=== PATIENT | female | born 1935 | race Caucasian/White ===

== ENCOUNTER 2020-07-27 11:25 | Inpatient (IN) | payer MEDICARE, MEDICAID ==
[~2020-07-27 11:25] MED LIST: ALEVE 220MG220 MG PO; ATIVAN1 MG PO; BENADRYL 1%-0.11 CRE TP; BENADRYL25 M1 PO; BIOFREEZE 0.2%-1 GE1 TP; BONIVA PO; CALCIUM 500 SU500 MG PO; COZAAR100 MG PO; CYMBALTA; GABAPENTIN; GLUCOSAMINE & C1 CAP PO; HUMALOG MIX 75/10 ML SC; HYZAAR 50-12.1 UDTAB PO; IMODIUM 2MG CAPS2 MG PO; KLOR-CON M2020 MEQ PO; L-THYROXINE S0.05 MG PO; LASIX40 MG PO; MILK OF MA1200 MG/5 PO; MULTIVITAMIN WI1 CTB PO; NEURONTIN300 MG/CAP PO; NOVOLOG100 U/ML SC; OSCAL 500MG/VI500 MG PO; PEPCID 20MG TAB20 MG PO; QUININE SULFAT PO; REGLAN 10MG10 MG/TAB PO; TYLENOL 500MG500 MG PO; ULTRAM 50MG TAB50 MG PO; VITAMIN D31000 I1 PO; ZOCOR20 MG PO
[2020-07-27 14:59] LABS: BASO % 0.6 % (0.0-2.0); EOS # 0.2 (0.0-0.7); EOS % 3.1 % (0-4.0); GRAN # 4.8 (1.4-6.5); HEMOGLOBIN 11.2 g/dl (12.5-16.0); LYMPH # 1.1 (1.2-3.4); MEAN CELL VOLUME 98 fl (80.0-100.0); MEAN CORPUSCULAR HEMOGLOBIN 31 pg (27.0-31.0); MEAN CORPUSCULAR HGB CONC 32 g/dl (33.0-37.0); MEAN PLATELET VOLUME 11.8 fl (7.4-10.4); MONO # 0.6 (0.1-0.6); PLATELET COUNT 141 K/mm3 (130-400); REDCELL DISTRIBUTION WIDTH-CV 13.2 % (11.5-14.5)
[2020-07-27 15:11] LABS: CALCIUM 8.6 mg/dL (8.4-10.2); CREATININE, serum 2.47 (0.52-1.25); POTASSIUM 3.5 mmol/L (3.4-5.0)
[2020-07-27 15:15] LABS: HEMATOCRIT 35.4 % (37.0-47.0)
[2020-07-27 17:07] VITALS: BP 110/94; PULSE 85; TEMP 98
[2020-07-27] MEDS ORDERED: NOVOLOG FLEX100 U/ML (17:55)
[2020-07-27] MEDS ORDERED: NORCO 325 MG-51 TAB PO (17:57)
[2020-07-27] MEDS ORDERED: MS CONTIN 115 MG/TAB PO (18:04)
[2020-07-27] MEDS ORDERED: WELLBUTRIN XL150 MG PO (18:05)
[2020-07-27] MEDS ORDERED: ABILIFY2 MG PO (18:06)
[2020-07-27] MEDS ORDERED: LASIX 40MG TABL40 MG PO (18:10)
[2020-07-27] MEDS ORDERED: LANTUS SOLOS100 U/ML SQ (18:13)
[2020-07-27] MEDS ORDERED: LASIX 20MG TABL20 MG PO (18:18)
[2020-07-27] MEDS ORDERED: SYNTHROID0.112 MG/T PO (18:21)
[2020-07-27] MEDS ORDERED: LIPITOR 40MG TA40 MG PO (18:22)
[2020-07-27] MEDS ORDERED: HYGROTON 2525 MG/TAB PO (18:23)
[2020-07-27] MEDS ORDERED: PLAVIX 75MG TAB75 MG PO (18:44)
[2020-07-27] MEDS ORDERED: PRILOSEC 20MG20 MG PO (18:44)
[2020-07-27] MEDS ORDERED: NEURONTIN600 MG/TAB PO (18:46)
[2020-07-27] MEDS ORDERED: DESYREL 50MG50 MG PO (18:49)
[2020-07-27] MEDS ORDERED: TOPROL XL 25MG25 MG PO (18:50)
[2020-07-27] MEDS ORDERED: ATIVAN 0.50.5 MG/TAB PO (18:52)
[2020-07-27] MEDS ORDERED: ATARAX 25MG25 MG/TAB PO (18:57)
[2020-07-27] MEDS ORDERED: PROVENTIL0.09 MG/A1 IH (18:58)
[2020-07-27] MEDS ORDERED: NYSTATIN POWDER15 GM TOP (19:00)
[2020-07-27] MEDS ORDERED: IPRATROPIUM BROM3 M1 IH (19:02)
[2020-07-27] MEDS ORDERED: K-DUR20 MEQ PO (19:03)
[2020-07-27] MEDS ORDERED: NOVOLOG FLEX100 U/ML SQ ×2 (19:06→19:08)
[2020-07-27 20:41] VITALS: BP 151/60; PULSE 100; TEMP 98.1
--- NOTE | 2020-07-28 | NUR ---
pt resting in bed, asessment completed. medications given per NOV. pt reports shortness of breath with audible wheezes throughout. heart sounds are regular and normal. edema bilateral lower extremities and redness. folley in place and bumex drip running at 5 mL per hour. no other needs at this time, will continue to monitor.
[2020-07-28 00:09] VITALS: BP 121/61; PULSE 99; TEMP 98.7
[2020-07-28] MEDS ORDERED: COZAAR100 MG PO (01:41)
[2020-07-28] MEDS ORDERED: TOPROL XL 25MG25 MG PO (01:42)
[2020-07-28] MEDS ORDERED: PRILOSEC 20MG20 MG PO (01:43)
[2020-07-28] MEDS ORDERED: SENNA-LAX8.6 MG PO (01:46)
[2020-07-28] MEDS ORDERED: VITAMIN D31000 IU PO (01:52)
[2020-07-28] MEDS ORDERED: CYMBALTA 60MG60 MG PO (01:53)
[2020-07-28] MEDS ORDERED: ALBUTEROL0.83 MG/ML IH (02:03)
[2020-07-28] MEDS ORDERED: MUCINEX 60600 MG/TA1 PO (02:06)
[2020-07-28 03:34] VITALS: BP 139/65; PULSE 92; TEMP 98
--- NOTE | 2020-07-28 05:41 | NUR ---
pt sleeping most of the night, oxygen on at 2 liters and head of bed raised. pt continues to report shortness of breath and cough. no other needs at this time, will continue to monitor.
[2020-07-28 06:39] LABS: BASO % 0.6 % (0.0-2.0); EOS # 0.1 (0.0-0.7); EOS % 1.9 % (0-4.0); GRAN # 4.3 (1.4-6.5); HEMOGLOBIN 11.4 g/dl (12.5-16.0); LYMPH # 1.2 (1.2-3.4); LYMPH % 18.2 % (20.0-51.0); MEAN CELL VOLUME 99 fl (80.0-100.0); MEAN CORPUSCULAR HEMOGLOBIN 31 pg (27.0-31.0); MEAN CORPUSCULAR HGB CONC 32 g/dl (33.0-37.0); MEAN PLATELET VOLUME 12.2 fl (7.4-10.4); MONO # 0.8 (0.1-0.6); MONO % 11.8 % (1.7-9.3); PLATELET COUNT 130 K/mm3 (130-400); RED BLOOD COUNT 3.63 M/mm3 (4.10-5.30); REDCELL DISTRIBUTION WIDTH-CV 13.1 % (11.5-14.5)
[2020-07-28 06:46] LABS: HEMATOCRIT 35.9 % (37.0-47.0)
[2020-07-28 07:03] LABS: CALCIUM 8.6 mg/dL (8.4-10.2); PHOSPHOROUS 5.1 mg/dL (2.5-4.5); POTASSIUM 3.5 mmol/L (3.4-5.0)
[2020-07-28 08:00] VITALS: BP 118/58; PULSE 74; TEMP 95
[2020-07-28 12:00] VITALS: BP 113/59; PULSE 78; TEMP 98.4
--- NOTE | 2020-07-28 12:18 | NUR ---
Plan is to return home to [place]. Patient reports that she is fairly independent. Patient shares that she resides in the [facility]. Patient shares that her PCP is Dr. Carballo and the long-term handles her medications. Patient shares that her son is apart of her care. Jack . Patient reports that she will return to the [facility]. Will contiue to follow for needs.
[2020-07-28 16:09] VITALS: BP 157/61; PULSE 89; TEMP 99.2
--- NOTE | 2020-07-28 18:09 | NUR ---
PATIENT HAS HAD A VERY UNEVENTFUL DAY. PATIENT HAS BEEN VERY SLEEPY DURING THE DAY. DR MUÑOZ WAS IN TO SEE THE PATIENT AND WAS AWARE OF THE SLEEPINESS THAT THE PATIENT WAS ENCOUNTERING AND CHANGED SOME MEDICATIONS AROUND. PATIENT HS BLOOD SUGAR WAS 85 AND DID NOT RECIEVE ANY INSULIN. PATIENT DID EAT SOME OF HER LUNCH AFTER IT WAS CUT UP AND SHE WAS ASISTED. PATIENT RIGHT ARM VERY JERKY WHEN TRYING TO DO ANYTHING WITH IT, FOR EXAMPLE FEED HERSELF. UNSURE OF HOW THE PATIENT AMBULATES WHEN OUT OF BED. PATIENT WAS ORIENTATED DURING THE SHIFT BUT MADE WEIRD COMMENTS AT TIMES. CALL LIGHT IN REACH. WILL REPORT OFF TO [employer] FIRE SUPPORT PLANNER.
[2020-07-28 19:31] LABS: ARTERIAL BLD GAS O2 SATURATION 92.7 % (92-100); ARTERIAL BLD GAS TCO2 CT 35.8; ARTERIAL BLOOD GAS BASE EXCESS 7.5 (-2-2); ARTERIAL BLOOD GAS PCO2 57.1 mmHg (35-45); ARTERIAL BLOOD GAS PO2 65.4 mmHg (80-100); ARTERIAL BLOOD GAS pH 7.39 (7.35-7.45)
--- NOTE | 2020-07-28 20:00 | NUR ---
Report recieved, assumed care for juice tester. Assessment complete. A&Ox3-very drowsy-falling asleep during conversation. Denies pain/nasuea. States she is less short of breath this afternoon than she was earlier. Bumex infusion to right forearm IV-infusing at 5mls/hr. Neslon cath with clear yellow urine. NOted to have +2 edema to bilat upper and lower extremities. O2@2L/NC. Denies needs. Call light in reach. will monitor.
[2020-07-28 23:29] VITALS: BP 147/56; PULSE 97; TEMP 97.9
[2020-07-29 03:52] VITALS: BP 136/56; PULSE 96; TEMP 97.3
--- NOTE | 2020-07-29 05:00 | NUR ---
Remained very very drowsy all shift. Would fall asleep during conversation and not remember what we spoke about. Currently awake/alert/oriented and very talkative. States she doesnt remember anything from yesterday-states she received a medication in the morning that she thinks made her confused/extremely drowsy. Still has some tremors to arms bilat. Denies pain/nausea/shortness of breath. AM labs drawn. UA sent to lab per dr order. Denies needs. Call light in reach. Will monitor.
[2020-07-29 05:42] LABS: COLLECTION METHOD CATHETER
[2020-07-29 05:55] LABS: AMORPHOUS CRYSTAL Present /uL; PH 8 (5-8); SQUAMOUS EPITHELIAL 0-2 /hpf; URINE APPEARANCE Cloudy; URINE BACTERIA Rare /hpf; URINE BILIRUBIN Negative (NEGATIVE); URINE BLOOD 1+ (NEGATIVE); URINE CALCIUM OXALATE CRYSTAL Present /hpf; URINE COLOR Yellow; URINE GLUCOSE Negative (NEGATIVE); URINE KETONE Negative (NEGATIVE); URINE LEUKOCYTE ESTERASE 2+ (NEGATIVE); URINE NITRATE Positive (NEGATIVE); URINE PROTEIN(semi-quant) Negative (NEGATIVE); URINE PROTEIN:CREAT RATIO 0.81 (0.00-0.14); URINE TRIPLE PHOSPHATE CRYSTAL Present /hpf; URINE UROBILINOGEN Negative (NEGATIVE)
[2020-07-29 07:49] VITALS: BP 142/41; PULSE 94; TEMP 98.4
--- NOTE | 2020-07-29 09:01 | NUR ---
Pt assessment complete. Pt is sitting up in bed upon entry, she is A/O x4. Her breathing is even and unlabored on 1L O2 via NC. Reports occasional SOB. Currently reporting pain to shoulders, knees and abdomen, Tylenol administered. Omar DD, clear yellow urine present. SCD's in place. Bumex gtt without issues. POC discussed with patient who verbalizes understanding. No needs at this time. Call light within reach.
[2020-07-29 10:28] LABS: BASO % 0.6 % (0.0-2.0); EOS # 0.1 (0.0-0.7); EOS % 1.2 % (0-4.0); GRAN # 4.9 (1.4-6.5); GRAN % 74.1 % (42.2-75.2); HEMOGLOBIN 11.5 g/dl (12.5-16.0); LYMPH % 14.3 % (20.0-51.0); MEAN CELL VOLUME 97 fl (80.0-100.0); MEAN CORPUSCULAR HEMOGLOBIN 31 pg (27.0-31.0); MEAN CORPUSCULAR HGB CONC 32 g/dl (33.0-37.0); MEAN PLATELET VOLUME 11.7 fl (7.4-10.4); MONO # 0.6 (0.1-0.6); MONO % 8.9 % (1.7-9.3); PLATELET COUNT 139 K/mm3 (130-400); REDCELL DISTRIBUTION WIDTH-CV 12.9 % (11.5-14.5)
[2020-07-29 10:48] LABS: ALBUMIN 3.8 gm/dL (3.5-5.0); CALCIUM 8.7 mg/dL (8.4-10.2); CREATININE, serum 1.42 (0.52-1.25); PHOSPHOROUS 3.2 mg/dL (2.5-4.5)
[2020-07-29 10:53] LABS: POTASSIUM 2.9 mmol/L (3.4-5.0)
[2020-07-29 11:08] VITALS: BP 153/55; PULSE 93; TEMP 99
[2020-07-29 15:52] VITALS: BP 151/63; PULSE 88; TEMP 98.1
--- NOTE | 2020-07-29 19:58 | NUR ---
Uneventful day. Continued to report mild pain, PRN Tylenol administered. Bottom reddenned, repositioning completed through shift. Bumex infusing without complications. Omar GARCIA.
[2020-07-29 20:04] VITALS: BP 152/61; PULSE 86; TEMP 97.7
--- NOTE | 2020-07-29 22:44 | NUR ---
Pt resting in bed, assessment completed and medications given per NOV. Bumex drip is running at 3 mL per hour. pt states that shortness of breath has improved, lung sounds have wheezing throughout and cough is nonproductive. pt states that chest pain occurs only with coughing. heart sounds are regular and normal. bilateral lower legs are reddened with +1 pitting edema, SCDs are on. no other needs at this time, will continue to monitor.
[2020-07-29 23:41] VITALS: BP 148/55; PULSE 86; TEMP 97.9
--- NOTE | 2020-07-30 02:35 | NUR ---
pt reporting pain in her legs and neck, rated an 8 out of 10. gave tylenol prn per orders.
[2020-07-30 03:32] VITALS: BP 157/61; PULSE 90; TEMP 98.5
--- NOTE | 2020-07-30 04:40 | NUR ---
pt reporting difficulty falling asleep, gave benedryl prn. pt slept most of the night on cpap, pain in legs and neck woke her up and pt has had trouble falling asleep since. called for any needs throughout the night, will continue to monitor.
[2020-07-30 06:46] LABS: BASO % 0.5 % (0.0-2.0); EOS # 0.1 (0.0-0.7); EOS % 1.9 % (0-4.0); GRAN # 4.7 (1.4-6.5); GRAN % 72.5 % (42.2-75.2); HEMOGLOBIN 11.8 g/dl (12.5-16.0); LYMPH % 15.3 % (20.0-51.0); MEAN CELL VOLUME 97 fl (80.0-100.0); MEAN CORPUSCULAR HEMOGLOBIN 32 pg (27.0-31.0); MEAN CORPUSCULAR HGB CONC 33 g/dl (33.0-37.0); MEAN PLATELET VOLUME 11.8 fl (7.4-10.4); MONO # 0.6 (0.1-0.6); MONO % 9.3 % (1.7-9.3); PLATELET COUNT 149 K/mm3 (130-400); RED BLOOD COUNT 3.74 M/mm3 (4.10-5.30); REDCELL DISTRIBUTION WIDTH-CV 12.8 % (11.5-14.5)
[2020-07-30 06:47] LABS: HEMATOCRIT 36.3 % (37.0-47.0)
[2020-07-30 07:03] LABS: ALBUMIN 3.9 gm/dL (3.5-5.0); CREATININE, serum 1.09 (0.52-1.25); PHOSPHOROUS 2.6 mg/dL (2.5-4.5)
[2020-07-30 07:13] LABS: POTASSIUM 2.9 mmol/L (3.4-5.0)
[2020-07-30 07:36] VITALS: BP 175/65; PULSE 92; TEMP 99.2
--- NOTE | 2020-07-30 07:46 | NUR ---
Potassium at 2.9, RN called Dr Rodriguez. recieved phone order to start patient on potassim protocol without Telemetry implementation.
--- NOTE | 2020-07-30 11:12 | NUR ---
This RN reordered Echo, previous order was completed with the procedure been done.
[2020-07-30 12:05] VITALS: BP 140/65; PULSE 92; TEMP 98.5
--- NOTE | 2020-07-30 14:42 | NUR ---
Patient is alert and oriented. complained of generalized pain and nause. gave tylenol and zofran. Patient is stool incontinent. Patient was started on potassium protocol. Resting in bed at this time. call light within reach.
[2020-07-30 16:03] VITALS: BP 155/76; PULSE 110; TEMP 98.5
--- NOTE | 2020-07-30 16:33 | NUR ---
Bench Assembler contacted Italia Bench Assembler at [facility] and faxed clinical updates. Italia reports they plan to take patient back upon discharge. KITTY contacted patient's son, Jack to provide update. Jack advised patient is a permanent resident of [facility]. KITTY spoke with TREV Adame about ordering COVID swab. KITTY will continue to follow.
--- NOTE | 2020-07-30 17:56 | NUR ---
ECHO, RENAL ULTRASOUND, COVID19 SWAB COMPLETED THIS SHIFT.
[2020-07-30 19:23] VITALS: BP 152/51; PULSE 94; TEMP 98.5
--- NOTE | 2020-07-30 19:30 | NUR ---
Pt was watching television when this nurse went for a bedside handover. No further needs at this time.
--- NOTE | 2020-07-30 22:33 | NUR ---
PATIENT REFUSES TO WEAR PAP DEVICE.
[2020-07-30 23:39] VITALS: BP 153/75; PULSE 92; TEMP 98.3
[2020-07-31 03:28] VITALS: BP 121/62; PULSE 86; TEMP 98.2
--- NOTE | 2020-07-31 04:44 | NUR ---
Pt assessment completed and charted. Meds provided as per NOV. Pt is settled on her bedside, call light on reach.
--- NOTE | 2020-07-31 05:59 | NUR ---
Pt had an uneventful night, slept on and off through out the night. Had bowel movement. No further needs at this time.
[2020-07-31 06:33] LABS: HEMATOCRIT 39.1 % (37.0-47.0); HEMOGLOBIN 12.5 g/dl (12.5-16.0); MEAN CELL VOLUME 99 fl (80.0-100.0); MEAN CORPUSCULAR HEMOGLOBIN 32 pg (27.0-31.0); MEAN CORPUSCULAR HGB CONC 32 g/dl (33.0-37.0); MEAN PLATELET VOLUME 11.9 fl (7.4-10.4); PLATELET COUNT 155 K/mm3 (130-400); RED BLOOD COUNT 3.96 M/mm3 (4.10-5.30); REDCELL DISTRIBUTION WIDTH-CV 12.7 % (11.5-14.5)
[2020-07-31 06:45] LABS: ALBUMIN 3.9 gm/dL (3.5-5.0); CALCIUM 9.4 mg/dL (8.4-10.2); CREATININE, serum 1.26 (0.52-1.25); PHOSPHOROUS 3.3 mg/dL (2.5-4.5); POTASSIUM 3.3 mmol/L (3.4-5.0)
[2020-07-31 07:31] LABS: BAND 1 % (0-10); EOSINOPHIL 1 % (0-4); LYMPHOCYTE 14 % (20.0-51.0); NEUTROPHILS 79 % (42.0-75.2)
[2020-07-31 07:33] LABS: PLATELET ESTIMATE NORMAL (NORMAL)
[2020-07-31 07:34] LABS: HYPOCHROMIA 1+
[2020-07-31 08:15] VITALS: BP 156/54; PULSE 87; TEMP 98.1
[2020-07-31 11:54] VITALS: BP 169/76; PULSE 95; TEMP 98.3
--- NOTE | 2020-07-31 16:40 | NUR ---
Safemaker collaborated with Dr. Rodriguez who advised patient is cleared for discharge once COVID results are back, [facility]. KITTY contacted KITTY Echavarria at [facility] to provide update that patient is ready for discharge pending COVID results. KITTY will continue to follow.
[2020-07-31 17:05] VITALS: BP 157/72; BP 161/79; PULSE 77; PULSE 86; TEMP 97.8; TEMP 98.1
--- NOTE | 2020-07-31 18:24 | NUR ---
Patient alert and oriented. report low appetite, Covid19 test came back negative. RN discussed with creamery worker about placement. creamery worker agree to contact [facility] about readmitting patient into the facility. Nelson catheter was discontinued this afternoon around 1430. patient is yet to void at this time. Patient should be discharging tomorrow 08/01/20.
[2020-07-31 19:56] VITALS: BP 158/66; PULSE 92; TEMP 98.2
--- NOTE | 2020-07-31 20:40 | NUR ---
Patient assessed at this time. Alert and oriented, with intermittent confusion. Reported some pain, all over, and given PRN APAP. Peripheral INT to right AC flushed. Site without redness, warmth, swelling, and pain. Deneis SOB and dyspnea. On oxygen at 1.5 L/min via NC. LS expiratory wheezes. HRR. Cpaillary refill less than 3 seconds. Non-tenting skin turgor. BS hyperactive x 4. Abdomen soft and non-tender. Incontinent of bowel and bladder. Loose stools x 2 so far this shift. Given PRN Imodium. Redness to coccyx blanchable. 2+ edema BLE. Voices no questions, needs, or concerns at this time. Resting in bed with call light within reach. High fall risk precautions in place.
[2020-07-31 23:22] VITALS: BP 157/66; PULSE 86; TEMP 98.2
[2020-08-01 03:18] VITALS: BP 143/65; PULSE 77; TEMP 98.3
--- NOTE | 2020-08-01 06:16 | NUR ---
Patient has has one more loose stool since receiving PRN Imodium at beginning of shift. Patient denies pain and discomfort. Voices no questions, needs, or concerns at this time. Resting in bed with call light within reach.
[2020-08-01 06:50] LABS: MEAN CORPUSCULAR HEMOGLOBIN 31 pg (27.0-31.0); MEAN CORPUSCULAR HGB CONC 33 g/dl (33.0-37.0); MEAN PLATELET VOLUME 11.7 fl (7.4-10.4); PLATELET COUNT 155 K/mm3 (130-400); RED BLOOD COUNT 3.84 M/mm3 (4.10-5.30); REDCELL DISTRIBUTION WIDTH-CV 12.5 % (11.5-14.5)
[2020-08-01 06:51] LABS: MEAN CELL VOLUME 94 fl (80.0-100.0)
[2020-08-01 06:55] LABS: ALBUMIN 3.7 gm/dL (3.5-5.0); CALCIUM 9.3 mg/dL (8.4-10.2); CREATININE, serum 1.06 (0.52-1.25); PHOSPHOROUS 2.7 mg/dL (2.5-4.5)
[2020-08-01 07:11] LABS: BAND 14 % (0-10); EOSINOPHIL 1 % (0-4); LYMPHOCYTE 16 % (20.0-51.0); METAMYELOCYTE 1 % (0-0); NEUTROPHILS 58 % (42.0-75.2); PLATELET ESTIMATE NORMAL (NORMAL)
[2020-08-01 07:17] LABS: POTASSIUM 2.7 mmol/L (3.4-5.0)
--- NOTE | 2020-08-01 07:29 | NUR ---
Patient alert and oriented. complain of mild pain to her right shoulder. Night nurse report adequate urine output. morning potassium is 2.7, potassium replaced per protocol.
[2020-08-01 08:04] VITALS: BP 162/68; PULSE 84; TEMP 98
[2020-08-01] MEDS ORDERED: COZAAR 50MG50 MG/TAB PO (10:21)
[2020-08-01] MEDS ORDERED: BACTRIM DS 8001 TAB PO (10:39)
[2020-08-01 11:13] VITALS: BP 141/63; PULSE 87; TEMP 98.5
--- NOTE | 2020-08-01 13:01 | NUR ---
Patient's COVID results came back negative and patient is ready for discharge today. KITTY contacted Italia at [facility] who will picker operator patient at 1300. Italia advised that they just found out today that they have two positive COVID patient's at their facility, so Italia requested patient be brought to the ED entrance so she doesn't have to enter the building. KITTY collaborated with TREV Adame about transport time and meeting in the ED entrance. KITTY met with patient who is in agreement with discharge to [facility] today. KITTY read IM form out loud to patient who verbalized understanding and gave SW permission to sign on her behalf. KITTY placed form in chart and provided copy to patient. KITTY contacted patient's son, Jack and left a message. KITTY also contacted Italia again to remind her patient is on 2 liters of oxygen. KITTY faxed discharge orders and negative COVID results to Italia at [facility]. No additional needs at this time.
--- NOTE | 2020-08-01 15:33 | NUR ---
gave report to [facility]. Patient is alert and oriented. potassium was replaced. INT discontinued. Patient discharged.
== END 2020-08-01 13:30 | DRG 682 ==
LOC: MEDICAL 11:25
PROVIDERS: ADMIT Internal Medicine Nephrology
DX: N17.9 Acute kidney failure, unspecified (principal); I50.33 Acute on chronic diastolic (congestive) heart failure; I13.0 Hypertensive heart and chronic kidney disease with heart failure and stage 1 through stage 4 chronic kidney disease, or unspecified chronic kidney disease; E87.3 Alkalosis; N39.0 Urinary tract infection, site not specified; N18.32 Chronic kidney disease, stage 3b; F32.9 Major depressive disorder, single episode, unspecified; E03.9 Hypothyroidism, unspecified; F41.9 Anxiety disorder, unspecified; E11.21 Type 2 diabetes mellitus with diabetic nephropathy; E11.22 Type 2 diabetes mellitus with diabetic chronic kidney disease; E66.01 Morbid (severe) obesity due to excess calories; E87.6 Hypokalemia; J45.909 Unspecified asthma, uncomplicated; I27.20 Pulmonary hypertension, unspecified; G47.30 Sleep apnea, unspecified; Z79.4 Long term (current) use of insulin; Z88.6 Allergy status to analgesic agent
CPT/HCPCS: J1815; J2405

== ENCOUNTER 2021-11-21 23:45 | Inpatient (IN) | payer MEDICARE, MEDICAID ==
[~2021-11-21] VITALS: Ht 154.9 cm; Wt 106.8 kg
[~2021-11-21 23:45] MED LIST changes: +ABILIFY2 MG PO; +ALBUTEROL0.83 MG/ML IH; +ATARAX 25MG25 MG/TAB PO; +ATIVAN 0.50.5 MG/TAB PO; +BACTRIM DS 8001 TAB PO; +COZAAR 50MG50 MG/TAB PO; +CYMBALTA 60MG60 MG PO; +DESYREL 50MG50 MG PO; +HYGROTON 2525 MG/TAB PO; +IPRATROPIUM BROM3 M1 IH; +K-DUR20 MEQ PO; +LANTUS SOLOS100 U/ML SQ; +LASIX 20MG TABL20 MG PO; +LASIX 40MG TABL40 MG PO; +LIPITOR 40MG TA40 MG PO; +MS CONTIN 115 MG/TAB PO; +MUCINEX 60600 MG/TA1 PO; +NEURONTIN600 MG/TAB PO; +NORCO 325 MG-51 TAB PO; +NOVOLOG FLEX100 U/ML; +NOVOLOG FLEX100 U/ML SQ; +NYSTATIN POWDER15 GM TOP; +PLAVIX 75MG TAB75 MG PO; +PRILOSEC 20MG20 MG PO; +PROVENTIL0.09 MG/A1 IH; +SENNA-LAX8.6 MG PO; +SYNTHROID0.112 MG/T PO; +TOPROL XL 25MG25 MG PO; +VITAMIN D31000 IU PO; +WELLBUTRIN XL150 MG PO
[2021-11-22] VITALS (15 sets, daily range): BP systolic 130–167; BP diastolic 52–70; PULSE 74–101; TEMP 97.7–98.7
--- NOTE | 2021-11-22 | NUR ---
PT ADMITTED TO ROOM 330 PER [facility] UTILITY WORKER. PT MOANING. INT TO LT HAND. SLOW FLUSH. INT TO RT HAND WITH NS TO GRAVITY NOTED.
--- NOTE | 2021-11-22 00:05 | NUR ---
PT ON 3L O2 NC PRIOR TO ADMIT. CONTINUED
[2021-11-22] MEDS ORDERED: LIQUIFILM TEARS15 ML OU ×2 (00:27→00:28)
[2021-11-22] MEDS ORDERED: DULCOLAX S10 MG/SUPP RC ×2 (00:33→01:12)
[2021-11-22] MEDS ORDERED: 00186-0370-20 IH ×2 (00:35→01:25)
[2021-11-22] MEDS ORDERED: CALCIUM CARBON500 M1 PO (00:38)
[2021-11-22] MEDS ORDERED: HYGROTON 2525 MG/TAB PO ×2 (00:40→01:11)
[2021-11-22] MEDS ORDERED: BENADRYL25 M2 PO ×2 (00:44→01:10)
[2021-11-22] MEDS ORDERED: PEPCID 20MG TAB20 MG PO ×2 (00:48→01:21)
[2021-11-22] MEDS ORDERED: CLARITIN 1010 MG/TAB PO ×2 (01:02→01:11)
[2021-11-22] MEDS ORDERED: TYLENOL 325MG325 MG PO ×2 (01:06→01:27)
[2021-11-22] MEDS ORDERED: TYLENOL 500MG500 MG PO (01:07)
[2021-11-22] MEDS ORDERED: ARTIFICIAL TEAR15 M7 OP (01:08)
[2021-11-22] MEDS ORDERED: [UNRECOGNIZED DRUG - OTHER] OP (01:09)
[2021-11-22] MEDS ORDERED: ATIVAN 0.50.5 MG/TAB PO ×2 (01:09)
[2021-11-22] MEDS ORDERED: LIPITOR 40MG TA40 MG PO (01:09)
[2021-11-22] MEDS ORDERED: BETAMETHASONE VA0.1% TP (01:10)
[2021-11-22] MEDS ORDERED: BIOFREEZE 0.2%-1 GE1 TOP (01:10)
[2021-11-22] MEDS ORDERED: ANTACID500 M1 PO (01:11)
[2021-11-22] MEDS ORDERED: COZAAR100 MG PO (01:12)
[2021-11-22] MEDS ORDERED: PLAVIX 75MG TAB75 MG PO (01:12)
[2021-11-22] MEDS ORDERED: CYMBALTA 60MG60 MG PO (01:12)
[2021-11-22] MEDS ORDERED: NORCO 325 MG-51 TAB PO (01:13)
[2021-11-22] MEDS ORDERED: ATARAX 25MG25 MG/TAB PO (01:13)
[2021-11-22] MEDS ORDERED: NEURONTIN600 MG/TAB PO (01:13)
[2021-11-22] MEDS ORDERED: LACTULOSE10 GM/153 PO (01:14)
[2021-11-22] MEDS ORDERED: LANTUS SOLOS100 U/ML SQ (01:14)
[2021-11-22] MEDS ORDERED: LASIX 20MG TABL20 MG PO (01:14)
[2021-11-22] MEDS ORDERED: SYNTHROID0.112 MG/T PO (01:15)
[2021-11-22] MEDS ORDERED: LASIX 40MG TABL40 MG PO (01:15)
[2021-11-22] MEDS ORDERED: ANTI-DIARRHEAL2 MG PO (01:16)
[2021-11-22] MEDS ORDERED: NATURE'S BLEND M3 MG PO (01:16)
[2021-11-22] MEDS ORDERED: TOPROL XL 25MG25 MG PO (01:16)
[2021-11-22] MEDS ORDERED: LUTEIN20 M1 PO (01:16)
[2021-11-22] MEDS ORDERED: MILK OF MA400 MG/52 PO (01:17)
[2021-11-22] MEDS ORDERED: MIRALAX PA17 GM/Dose PO ×2 (01:17)
[2021-11-22] MEDS ORDERED: MUCINEX 60600 MG/TA1 PO (01:18)
[2021-11-22] MEDS ORDERED: MYLANTA 150 ML150 M1 PO (01:18)
--- NOTE | 2021-11-22 01:19 | NUR ---
NS STARTED AT 75CC/HR TO RT HAND.
[2021-11-22] MEDS ORDERED: NOVOLOG FLEX100 U/ML SQ ×3 (01:20→01:21)
[2021-11-22] MEDS ORDERED: NYAMYC100000 U/G TP (01:21)
[2021-11-22] MEDS ORDERED: SENNA-LAX8.6 MG PO (01:22)
[2021-11-22] MEDS ORDERED: K-DUR20 MEQ PO (01:22)
[2021-11-22] MEDS ORDERED: SINGULAIR 110 MG/TAB PO (01:23)
[2021-11-22] MEDS ORDERED: GAS RELIEF125 MG PO (01:23)
[2021-11-22] MEDS ORDERED: NS OP (01:25)
[2021-11-22] MEDS ORDERED: SYSTANE BALANCE10 M1 OP (01:25)
[2021-11-22] MEDS ORDERED: [UNRECOGNIZED DRUG - OTHER] OP (01:25)
--- NOTE | 2021-11-22 01:25 | NUR ---
VOIDED APPROX 300CC BROWNISH CLOUDY URINE PER BEDPAN.
[2021-11-22] MEDS ORDERED: MULTI VITAMINS1 TAB PO (01:26)
[2021-11-22] MEDS ORDERED: TUMS500 MG PO (01:26)
[2021-11-22] MEDS ORDERED: DESYREL 50MG50 MG PO (01:26)
[2021-11-22] MEDS ORDERED: VITAMIN D31000 I1 PO (01:28)
[2021-11-22] MEDS ORDERED: VENTOLIN0.09 MG IH (01:28)
--- NOTE | 2021-11-22 02:10 | NUR ---
NS DOWN TO 50CC/HR AT THIS TIME. SEE MAR FOR FENTANYL GIVEN.
--- NOTE | 2021-11-22 03:02 | NUR ---
PT RESTING QUIETLY AT THIS TIME.
--- NOTE | 2021-11-22 06:31 | NUR ---
NOTIFIED DR KRAMER OF CONSULT.
[2021-11-22 07:05] LABS: HEMATOCRIT 39.9 % (37.0-47.0); HEMOGLOBIN 13.2 g/dl (12.5-16.0); MEAN CELL VOLUME 96 fl (80.0-100.0); MEAN CORPUSCULAR HEMOGLOBIN 32 pg (27-31); MEAN CORPUSCULAR HGB CONC 33 g/dl (33.0-37.0); MEAN PLATELET VOLUME 12.7 fl (7.4-10.4); PLATELET COUNT 144 K/mm3 (130-400); RED BLOOD COUNT 4.16 M/mm3 (4.10-5.30); REDCELL DISTRIBUTION WIDTH-CV 13.8 % (11.5-14.5)
[2021-11-22 07:22] LABS: CALCIUM 8.8 mg/dL (8.4-10.2); CREATININE, serum 1.89 mg/dL (0.57-1.11); POTASSIUM 4.5 mmol/L (3.5-4.5)
[2021-11-22 08:47] LABS: BAND 29 % (0-10); LYMPHOCYTE 7 % (20.0-51.0); NEUTROPHILS 63 % (42.0-75.2); PLATELET ESTIMATE NORMAL (NORMAL)
--- NOTE | 2021-11-22 09:06 | NUR ---
PT LAYING IN BED IN 06/30 PAIN, MEDICATION GIVEN PER eMAR. VERIFIED WITH RADHA FROM ANESTHESIA WHICH MORNING MEDICATIONS TO GIVE. SHIFT ASSESSMENT COMPLETED. INSTRUCTED TO NOTIFY RADHA TO RECHECK GLUCOSE AT 0830 AND NOTIFY IS >100 DROP. WILL CONTINUE TO MONITOR.
--- NOTE | 2021-11-22 10:10 | NUR ---
Initial visit attempt; Nurse with patient who was in pain. Government Affairs Fellow left a card of prayer for patient.
--- NOTE | 2021-11-22 12:13 | NUR ---
PT ARRIVED BACK ON UNIT AT THIS TIME. CHECKED ON PT WITH ONCOMING RNJEANINE. HANDOFF REPORT GIVEN.
--- NOTE | 2021-11-22 13:17 | NUR ---
Patient came back to the room from surgery at 12:10 pm. Patient alert and oriented x3. Patient denies any pain or discomfort at this time. Nelson catheter in place and draining pink blood tinged urine. IV fluid infusing well per MAR. Call light in reach. Will continue to monitor.
--- NOTE | 2021-11-22 14:38 | NUR ---
Procedures Rn met with patient to discuss discharge planning. Patient lives at [facility] and sees Dr. Carballo for primary care. Patient reports she has both a walker and a wheelchair. Patient has four sons but advised that her sons Jack (ph#[phone]) and Rosas (ph#[phone]) are her DPOA-HC. SW contacted [facility] and faxed clinical updates. SW requested copy of DPOA-HC. SW was faxed a copy and confirmed it desginates Jack and Rosas. SW placed copy on chart. SW contacted Jack and provided update. SW advised discharge plan will be to return to [facility]. Discharge Plan: [facility]
--- NOTE | 2021-11-22 18:09 | NUR ---
Patient doing well. Patient tolerating PO intake. Patient ate some crackers, ice cream, and ice-tea for dinner. Nelson catheter patent and draining blood tinged urine. Call light in reach. Will give report to slot shift supervisor nurse.
--- NOTE | 2021-11-22 20:00 | NUR ---
PT RESTING QUIETLY. DENIES PAIN. NO NEEDS AT THIS TIME.
[2021-11-23 04:57] VITALS: BP 134/51; PULSE 70; TEMP 97.9
[2021-11-23 06:10] LABS: BASO % 0.2 % (0.0-2.0); GRAN % 86.3 % (42.2-75.2); LYMPH # 0.8 K/mm3 (1.2-3.4); LYMPH % 6.8 % (20.0-51.0); MEAN CELL VOLUME 95 fl (80.0-100.0); MEAN CORPUSCULAR HGB CONC 33 g/dl (33.0-37.0); MONO # 0.7 K/mm3 (0.1-0.6); MONO % 6.1 % (1.7-9.3); PLATELET COUNT 119 K/mm3 (130-400); RED BLOOD COUNT 3.55 M/mm3 (4.10-5.30); REDCELL DISTRIBUTION WIDTH-CV 13.2 % (11.5-14.5)
[2021-11-23 06:15] LABS: HEMATOCRIT 33.8 % (37.0-47.0); HEMOGLOBIN 11.1 g/dl (12.5-16.0); MEAN CORPUSCULAR HEMOGLOBIN 31 pg (27-31)
[2021-11-23 06:36] LABS: CALCIUM 8.2 mg/dL (8.4-10.2); CREATININE, serum 1.69 mg/dL (0.57-1.11)
[2021-11-23 08:00] VITALS: BP 113/43; PULSE 75; TEMP 97.5
[2021-11-23 11:23] VITALS: BP 119/43; PULSE 73; TEMP 97.9
[2021-11-23 15:49] VITALS: BP 121/50; PULSE 74; TEMP 97.5
--- NOTE | 2021-11-23 17:07 | NUR ---
CALLED ED [facility] PER DR. PRITCHETT TO GET PATIENT'S URINE CULTURE RESULTS. LAB IS FAXING RESULTS OVER.
[2021-11-23 20:50] VITALS: BP 150/68; PULSE 64; TEMP 97.3
[2021-11-24 00:17] VITALS: BP 144/99; PULSE 64; TEMP 97.3
[2021-11-24 04:22] VITALS: BP 120/59; PULSE 66; TEMP 98.2
[2021-11-24 06:26] LABS: BASO % 0.4 % (0.0-2.0); EOS # 0.1 K/mm3 (0.0-0.7); EOS % 0.7 % (0.0-4.0); GRAN # 7.4 K/mm3 (1.4-6.5); GRAN % 78.7 % (42.2-75.2); HEMOGLOBIN 10.7 g/dl (12.5-16.0); LYMPH # 1.3 K/mm3 (1.2-3.4); LYMPH % 14.1 % (20.0-51.0); MEAN CELL VOLUME 98 fl (80.0-100.0); MEAN CORPUSCULAR HEMOGLOBIN 31 pg (27-31); MEAN CORPUSCULAR HGB CONC 32 g/dl (33.0-37.0); MEAN PLATELET VOLUME 11.9 fl (7.4-10.4); MONO # 0.5 K/mm3 (0.1-0.6); MONO % 5.5 % (1.7-9.3); PLATELET COUNT 132 K/mm3 (130-400); RED BLOOD COUNT 3.42 M/mm3 (4.10-5.30); REDCELL DISTRIBUTION WIDTH-CV 13.5 % (11.5-14.5)
[2021-11-24 06:30] LABS: HEMATOCRIT 33.4 % (37.0-47.0)
[2021-11-24 06:38] LABS: POTASSIUM 3.3 mmol/L (3.5-4.5)
[2021-11-24 06:53] LABS: CALCIUM 8.1 mg/dL (8.4-10.2); CREATININE, serum 1.54 mg/dL (0.57-1.11)
[2021-11-24 07:20] VITALS: BP 154/55; PULSE 60; TEMP 97.8
--- NOTE | 2021-11-24 07:50 | NUR ---
Pt resting in bed, assisted her to sit up for breakfast. Pt reports that her back is bothering her, but denies the needs for pain medication. Morning medications, informed her that I would return to do her assessment after she finishes with eating. No needs verbalized, call light within reach
--- NOTE | 2021-11-24 09:30 | NUR ---
PT in with pt. Pt did have an incontinent stool in which she did not say anything, it was found during transfer. Pt cleaned up and moved over to chair.
--- NOTE | 2021-11-24 11:28 | NUR ---
Pt assisted back to bed. She did well with one assist. Pt is very stiff and edemitus. Pt did have a smear on the chair pad. Asked if pt needed to have bowel movement and she reported she did not. Attempted to clean up pt, did best I could. Each time I wiped, there was small amount of stool on cleansing wipe. Pt required assistance repositioning in bed. Pt reports not having any pain.
[2021-11-24 11:38] VITALS: BP 156/57; PULSE 64; TEMP 97.3
--- NOTE | 2021-11-24 12:26 | NUR ---
KITTY spoke with Dr. Jerome and pt is ready to be DC. Pt will DC back to [facility] at 10-1030am 3/7 am. Transportation has been setup.
[2021-11-24 15:46] VITALS: BP 158/69; PULSE 70; TEMP 97.8
--- NOTE | 2021-11-24 17:39 | NUR ---
Pt has slept off and on throughout the day. She does wake easily. Reports having some pain in her back, states it is normal for her. Pt having some incontinent stool. Reports she does not feel like she needs to have a bowel movement. Pt repositioned throughout the day. Pt has very little independent bed mobility. Dinner has been ordered, no other needs, call light within reach
[2021-11-24 19:31] VITALS: BP 164/81; PULSE 70; TEMP 98.4
--- NOTE | 2021-11-24 21:09 | NUR ---
PT HAVING BACK DISCOMFORT. REPOSITIONSED. SEE MAR FOR PAIN MED GIVENCALL LIGHT IN REACH. BED ALARM SET.
[2021-11-25 00:09] VITALS: BP 154/62; PULSE 74; TEMP 98.9
[2021-11-25 03:39] VITALS: BP 134/55; PULSE 72; TEMP 98.2
--- NOTE | 2021-11-25 06:12 | NUR ---
BLOOD SUGAR 65 THIS AM. GAVE OJ. WILL MONITOR.
[2021-11-25 06:29] LABS: BASO % 0.5 % (0.0-2.0); EOS # 0.2 K/mm3 (0.0-0.7); EOS % 2.3 % (0.0-4.0); GRAN # 5.1 K/mm3 (1.4-6.5); GRAN % 68.6 % (42.2-75.2); HEMOGLOBIN 11.7 g/dl (12.5-16.0); LYMPH # 1.5 K/mm3 (1.2-3.4); LYMPH % 19.6 % (20.0-51.0); MEAN CELL VOLUME 96 fl (80.0-100.0); MEAN CORPUSCULAR HEMOGLOBIN 31 pg (27-31); MEAN CORPUSCULAR HGB CONC 32 g/dl (33.0-37.0); MONO # 0.6 K/mm3 (0.1-0.6); MONO % 8.2 % (1.7-9.3); PLATELET COUNT 120 K/mm3 (130-400); RED BLOOD COUNT 3.78 M/mm3 (4.10-5.30); REDCELL DISTRIBUTION WIDTH-CV 13.3 % (11.5-14.5)
[2021-11-25 06:36] LABS: HEMATOCRIT 36.2 % (37.0-47.0)
[2021-11-25 06:46] LABS: ALBUMIN 2.8 gm/dL (3.4-4.8); CALCIUM 8.6 mg/dL (8.4-10.2); CREATININE, serum 1.24 mg/dL (0.57-1.11); MAGNESIUM 1.7 mg/dL (1.6-2.6); PHOSPHOROUS 2.8 mg/dL (2.3-4.7); POTASSIUM 3.2 mmol/L (3.5-4.5)
[2021-11-25 08:00] VITALS: BP 178/54; PULSE 65; TEMP 98.3
[2021-11-25] MEDS ORDERED: AMOXICILLIN/CLA1 TA1 PO (08:59)
[2021-11-25] MEDS ORDERED: FLOMAX 0.40.4 MG/CAP PO (09:05)
[2021-11-25 09:45] VITALS: BP 143/61; PULSE 72
--- NOTE | 2021-11-25 10:00 | NUR ---
Woke pt this morning for morning assessment and medications. Assisted her to the chair for breakfast. PT did well with one assist. Pt did have complaints of pain in her back, PRN given. Pt aware that she will be going back to the custodial this morning. Informed her we were told between 1000 and 1030. PT does not have any clothes with her. Nelson catheter and INT removed for discharge.
[2021-11-25 10:13] VITALS: BP 143/61; PULSE 72; TEMP 98.3
--- NOTE | 2021-11-25 11:01 | NUR ---
Proof Clerk confirmed transport time of 1030 and provided time to RN and Hospitalist team. SW faxed skilled orders to [facility]. SW contacted patient's son, Jack and left a message. Discharge Plan: [facility]
--- NOTE | 2021-11-25 11:12 | NUR ---
Pt transportation has arrived. They did bring clothes. Pt assisted getting dressed and then transferred to wheelchair. Pt escorted out at this time
== END 2021-11-25 11:10 | DRG 659 ==
LOC: SURG 23:45
PROVIDERS: Internal Medicine; Nurse Practitioner Family; Physician Assistant; Urology; ADMIT Internal Medicine
PROC: 0T768DZ Dilation of Right Ureter with Intraluminal Device, Via Natural or Artificial Opening Endoscopic (ICD-10-PCS; principal; 2021-11-22 11:00)
PROC: BT1D1ZZ Fluoroscopy of Right Kidney, Ureter and Bladder using Low Osmolar Contrast (ICD-10-PCS; 2021-11-22 11:00)
DX: N13.6 Pyonephrosis (principal); J96.01 Acute respiratory failure with hypoxia; Z68.41 Body mass index [BMI] 40.0-44.9, adult; I13.0 Hypertensive heart and chronic kidney disease with heart failure and stage 1 through stage 4 chronic kidney disease, or unspecified chronic kidney disease; I50.32 Chronic diastolic (congestive) heart failure; E78.5 Hyperlipidemia, unspecified; I25.10 Atherosclerotic heart disease of native coronary artery without angina pectoris; I48.91 Unspecified atrial fibrillation; G47.30 Sleep apnea, unspecified; J45.909 Unspecified asthma, uncomplicated; G40.909 Epilepsy, unspecified, not intractable, without status epilepticus; F03.90 Unspecified dementia, unspecified severity, without behavioral disturbance, psychotic disturbance, mood disturbance, and anxiety; N18.9 Chronic kidney disease, unspecified; E11.22 Type 2 diabetes mellitus with diabetic chronic kidney disease; E11.40 Type 2 diabetes mellitus with diabetic neuropathy, unspecified; E66.01 Morbid (severe) obesity due to excess calories; E03.9 Hypothyroidism, unspecified; F32.9 Major depressive disorder, single episode, unspecified; F41.9 Anxiety disorder, unspecified; K21.9 Gastro-esophageal reflux disease without esophagitis; K59.00 Constipation, unspecified; N17.9 Acute kidney failure, unspecified; Z95.5 Presence of coronary angioplasty implant and graft; Z79.4 Long term (current) use of insulin; Z23 Encounter for immunization
CPT/HCPCS: 99223-AI; 99232-AI; 99233-AI; 99239; A4314; C1769; C2617; J0690; J1100; J1815; J2405; J2543; J2704; J3010; J7030; Q9967

== ENCOUNTER 2022-01-31 08:07 | Day surgery (SDC) | payer MEDICARE, MEDICAID ==
[~2022-01-31] VITALS: Ht 154.9 cm; Wt 100.0 kg
[~2022-01-31 08:07] MED LIST changes: +00186-0370-20 IH; +AMOXICILLIN/CLA1 TA1 PO; +ANTACID500 M1 PO; +ANTI-DIARRHEAL2 MG PO; +ARTIFICIAL TEAR15 M7 OP; +BENADRYL25 M2 PO; +BETAMETHASONE VA0.1% TP; +BIOFREEZE 0.2%-1 GE1 TOP; +CALCIUM CARBON500 M1 PO; +CLARITIN 1010 MG/TAB PO; +DULCOLAX S10 MG/SUPP RC; +FLOMAX 0.40.4 MG/CAP PO; +GAS RELIEF125 MG PO; +LACTULOSE10 GM/153 PO; +LIQUIFILM TEARS15 ML OU; +LUTEIN20 M1 PO; +MILK OF MA400 MG/52 PO; +MIRALAX PA17 GM/Dose PO; +MULTI VITAMINS1 TAB PO; +MYLANTA 150 ML150 M1 PO; +NATURE'S BLEND M3 MG PO; +NS OP; +NYAMYC100000 U/G TP; +SINGULAIR 110 MG/TAB PO; +SYSTANE BALANCE10 M1 OP; +TUMS500 MG PO; +TYLENOL 325MG325 MG PO; +VENTOLIN0.09 MG IH; +[UNRECOGNIZED DRUG - OTHER] OP; +[UNRECOGNIZED DRUG - OTHER] OP
[2022-01-31 11:45] VITALS: BP 157/80; PULSE 56; TEMP 97.2
[2022-01-31 12:12] VITALS: BP 175/62; PULSE 63; TEMP 97.3
--- NOTE | 2022-01-31 13:32 | NUR ---
1135 Report received from Polly at bedside in PACU. 1140 Hand-off care to this RN. Transfer pt from PACU to [place] [id number] via cart and this RN assist. Monitors on and alarms set. Call light within reach. Pt's friend and caregiver, Italia, present in room. Pt denies nausea and states her pain is where it normally is when at home, at a 6 out of 10. Pt requests applesauce and Sprite Zero. 1155 Pt taking food and drink very well with assistance from Italia. Pt states that she feels like she really needs to go the bathroom. When standing to get on the commode, the pad under her is wet with what appears to be urine. The pt states she still feels the urge to urinate and sits on the commode. 1210 Pt still sitting on the commode without urinating any more. 1220 Pt continues to sit on the commode with the felt urge to urinate but not able to urinate. 1255 Pt has continued to try to urinate. She doesn't feel pain, just the urge. A bladder scan is performed, which shows 55 mL fluid in her bladder. 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 Due to the urine on the under pad, the pt and caregiver agree for the pt to be discharged, as the pt meets criteria for discharge. 1315 Discharge instructions given to pt and caregiver. All questions answered to their satisfaction. Pt's caregiver to call Dr. Hill's office for the stent pull follow-up. Handed to them are discharge instructions and information and a thank you card. Pt gets dressed with the caregiver's assistance. 1332 Pt transferred out of hospital via wheelchair and this RN assist to long-term care vehicle driven by Italia, caregiver.
== END 2022-01-31 13:32 | disposition home or self-care (01) ==
LOC: SDCO 08:07
DX: N20.2 Calculus of kidney with calculus of ureter (principal)
CPT/HCPCS: C1769; C2617; J0690; J2405; J2704; J3010